=== PATIENT | female | born 2000 | race Caucasian/White ===

== ENCOUNTER 2021-03-20 06:48 | Emergency (ER) | payer OTHER ==
[~2021-03-20 06:48] MED LIST: BENTYL10 MG PO; GUAIFENESIN-PS1 EACH PO; ZOFRAN4 MG PO
[2021-03-20 07:53] LABS: BASOPHIL 0.7 % (0-2); EOSINOPHIL 1.3 % (0-5); HCT 42.7 % (37.0-47.0); HGB 13.3 g/dl (12.5-16.0); LYMPHOCYTE 30.4 % (15-48); MCH 27.8 pg (25.0-31.0); MCHC 31.1 g/dL (32.0-36.0); MCV 89.3 fL (78.0-100.0); MONOCYTE 8.2 % (0-12); MPV 12.3 fL (6.0-9.5); NEUTROPHIL 59.3 % (41-80); NRBC 0; PLT 309 K/uL (150-400); RBC 4.78 M/uL (4.20-5.40); RDW 13.2 % (11.5-14.0); WBC 10.4 K/uL (4.0-10.5)
[2021-03-20 08:03] LABS: BILIRUBIN NEGATIVE (NEGATIVE); BLOOD 2+ Ery/uL (NEGATIVE); CLARITY CLEAR (CLEAR); COLOR YELLOW (YELLOW); GLUCOSE (U) NORMAL (NORMAL); LEUKOCYTES TRACE Leu/uL (NEGATIVE); NITRITE NEGATIVE (NEGATIVE); PROTEIN NEGATIVE (NEGATIVE); SPECIFIC GRAVITY 1.025 (1.001-1.030)
[2021-03-20 08:05] LABS: AMPHETAMINES NEGATIVE (NEGATIVE); BARBITURATES NEGATIVE (NEGATIVE); ECSTASY (MDMA) NEGATIVE (NEGATIVE); MARIJUANA (THC) NEGATIVE (NEGATIVE); METHADONE NEGATIVE (NEGATIVE); OPIATES NEGATIVE (NEGATIVE); OXYCODONE NEGATIVE (NEGATIVE)
[2021-03-20 08:11] LABS: BACTERIA 1+; SQUAMOUS EPITHELIAL CELLS 20-50; URINARY RBC RARE; URINARY WBC 20-50
[2021-03-20 08:20] LABS: ALBUMIN 3.9 g/dL (3.4-5.0); ALKALINE PHOSHATASE 72 U/L (46-116); ALT 41 U/L (14-59); AST 23 U/L (15-37); BILIRUBIN - TOTAL 0.2 mg/dL (0.2-1.0); BUN 13 mg/dL (7-18); BUN/CREAT RATIO (CALC) 14.3 RATIO; C-REACTIVE PROTEIN <0.20 mg/dL (<=0.90); CHLORIDE 107 mmol/L (98-107); CO2 (BICARBONATE) 25 mmol/L (21-32); CREATININE 0.91 mg/dL (0.51-0.95); GLOBULIN (CALCULATION) 4.1 g/dL; GLUCOSE 103 mg/dL (74-106); LIPASE 85 U/L (73-393); POTASSIUM 4.1 mmol/L (3.5-5.1)
[2021-03-20] MEDS ORDERED: ZOFRAN4 M1 PO (09:25)
[2021-03-20] MEDS ORDERED: BACTRIM DS TAB1 EACH PO (09:25)
== END 2021-03-20 09:52 | disposition home or self-care (01) ==
LOC: FER 06:48
PROVIDERS: Internal Medicine
DX: N12 Tubulo-interstitial nephritis, not specified as acute or chronic (principal); R10.11 Right upper quadrant pain; J45.909 Unspecified asthma, uncomplicated; Z88.8 Allergy status to other drugs, medicaments and biological substances
CPT/HCPCS: 36415; 80053; 80305; 81001; 83690; 85025; 86140

== ENCOUNTER 2021-04-28 16:51 | Emergency (ER) | payer OTHER ==
[~2021-04-28 16:51] MED LIST changes: +BACTRIM DS TAB1 EACH PO; +ZOFRAN4 M1 PO
[2021-04-28 20:08] LABS: BILIRUBIN NEGATIVE (NEGATIVE); BLOOD 2+ Ery/uL (NEGATIVE); COLOR YELLOW (YELLOW); GLUCOSE (U) NORMAL (NORMAL); LEUKOCYTES 3+ Leu/uL (NEGATIVE); NITRITE POSITIVE (NEGATIVE); PROTEIN 1+ mg/dL (NEGATIVE); SPECIFIC GRAVITY 1.015 (1.001-1.030); UROBILINOGEN 0.2 mg/dL (0.2-1.0)
[2021-04-28 20:09] LABS: CLARITY CLOUDY (CLEAR)
[2021-04-28 20:11] LABS: URINARY WBC TNTC
[2021-04-28 23:04] LABS: BASOPHIL 0.3 % (0-2); EOSINOPHIL 0.3 % (0-5); HCT 41.2 % (37.0-47.0); HGB 12.7 g/dl (12.5-16.0); LYMPHOCYTE 12.2 % (15-48); MCH 27.7 pg (25.0-31.0); MCHC 30.8 g/dL (32.0-36.0); MCV 89.8 fL (78.0-100.0); MONOCYTE 11.1 % (0-12); MPV 12.7 fL (6.0-9.5); NEUTROPHIL 75.7 % (41-80); NRBC 0; PLT 289 K/uL (150-400); RBC 4.59 M/uL (4.20-5.40); RDW 13.7 % (11.5-14.0); WBC 14.5 K/uL (4.0-10.5)
[2021-04-28 23:15] LABS: ALBUMIN 3.6 g/dL (3.4-5.0); BILIRUBIN - TOTAL 0.7 mg/dL (0.2-1.0); BUN/CREAT RATIO (CALC) 11.3 RATIO; CREATININE 1.06 mg/dL (0.51-0.95); GLOBULIN (CALCULATION) 4.4 g/dL; POTASSIUM 3.8 mmol/L (3.5-5.1)
[2021-04-29] MEDS ORDERED: ZOFRAN4 M1 PO (00:23)
[2021-04-29] MEDS ORDERED: NORCO 5-325 TA1 EACH PO (00:23)
[2021-04-29] MEDS ORDERED: MOTRIN600 MG PO (00:23)
[2021-04-29] MEDS ORDERED: BACTRIM DS TAB1 EACH PO (00:23)
[2021-04-30] MEDS ORDERED: BACTRIM DS TAB1 EACH PO (21:09)
== END 2021-04-29 01:00 | disposition home or self-care (01) ==
LOC: FER 16:51
PROVIDERS: Emergency Medicine
DX: N10 Acute pyelonephritis (principal); Z88.8 Allergy status to other drugs, medicaments and biological substances
CPT/HCPCS: 36415; 80053; 81001; 83605; 85025; 87076; 87088; 87186; J1885; J1956; J2405; J7030

== ENCOUNTER 2021-04-30 15:41 | Inpatient (IN) | payer SELFPAY ==
[~2021-04-30] VITALS: Ht 165.1 cm; Wt 112.2 kg
[~2021-04-30 15:41] MED LIST changes: +MOTRIN600 MG PO; +NORCO 5-325 TA1 EACH PO
[2021-04-30 16:58] LABS: BILIRUBIN 1+ mg/dL (NEGATIVE); BLOOD 1+ Ery/uL (NEGATIVE); CLARITY CLEAR (CLEAR); COLOR YELLOW (YELLOW); GLUCOSE (U) NORMAL (NORMAL); LEUKOCYTES 1+ Leu/uL (NEGATIVE); NITRITE NEGATIVE (NEGATIVE); PROTEIN 1+ mg/dL (NEGATIVE); SPECIFIC GRAVITY 1.025 (1.001-1.030)
[2021-04-30 17:02] LABS: BASOPHIL 0.2 % (0-2); EOSINOPHIL 0.1 % (0-5); HCT 36.3 % (37.0-47.0); HGB 11.4 g/dl (12.5-16.0); LYMPHOCYTE 7.7 % (15-48); MCH 27.6 pg (25.0-31.0); MCHC 31.4 g/dL (32.0-36.0); MCV 87.9 fL (78.0-100.0); MONOCYTE 13.2 % (0-12); MPV 11.7 fL (6.0-9.5); NEUTROPHIL 78.3 % (41-80); NRBC 0; PLT 259 K/uL (150-400); RBC 4.13 M/uL (4.20-5.40); RDW 13.4 % (11.5-14.0); WBC 16.3 K/uL (4.0-10.5)
[2021-04-30 17:10] LABS: BACTERIA 2+
[2021-04-30 17:18] LABS: ALBUMIN 3.1 g/dL (3.4-5.0); BILIRUBIN - TOTAL 0.4 mg/dL (0.2-1.0); BUN/CREAT RATIO (CALC) 6.8 RATIO; CREATININE 1.18 mg/dL (0.51-0.95); GLOBULIN (CALCULATION) 3.8 g/dL; POTASSIUM 3.6 mmol/L (3.5-5.1); TOTAL PROTEIN 6.9 g/dL (6.4-8.2)
--- NOTE | 2021-04-30 21:06 | NUR ---
2010 PT RECEIVED ADMIT FROM ED IN STABLE CONDITION. PT ORIENTED TO ROOM AND CALL LIGHT.
[2021-04-30] MEDS ORDERED: BACTRIM DS TAB1 EACH PO (21:09)
[2021-04-30 21:34] LABS: CORONAVIRUS 2019 SARS-COV-2 NEGATIVE (NEGATIVE); INFLUENZA A NAA NEGATIVE (NEGATIVE)
[2021-05-01 06:41] LABS: BASOPHIL 0.3 % (0-2); EOSINOPHIL 0.5 % (0-5); HCT 31.8 % (37.0-47.0); HGB 9.6 g/dl (12.5-16.0); LYMPHOCYTE 17.2 % (15-48); MCHC 30.2 g/dL (32.0-36.0); MCV 89.6 fL (78.0-100.0); MONOCYTE 13.5 % (0-12); MPV 12.1 fL (6.0-9.5); NEUTROPHIL 68.2 % (41-80); NRBC 0; PLT 217 K/uL (150-400); RBC 3.55 M/uL (4.20-5.40); RDW 13.6 % (11.5-14.0); WBC 11.1 K/uL (4.0-10.5)
[2021-05-01 09:14] LABS: ALBUMIN 2.4 g/dL (3.4-5.0); BILIRUBIN - TOTAL 0.4 mg/dL (0.2-1.0); BUN/CREAT RATIO (CALC) 9.3 RATIO; CREATININE 1.08 mg/dL (0.51-0.95); GLOBULIN (CALCULATION) 3.4 g/dL; POTASSIUM 4.1 mmol/L (3.5-5.1); TOTAL PROTEIN 5.8 g/dL (6.4-8.2)
[2021-05-01 10:31] LABS: FOLIC ACID (SERUM) 8.8 ng/mL (8.6-58.9)
[2021-05-02 05:54] LABS: BASOPHIL 0.3 % (0-2); EOSINOPHIL 0.6 % (0-5); HCT 33.7 % (37.0-47.0); HGB 10.4 g/dl (12.5-16.0); LYMPHOCYTE 17.2 % (15-48); MCH 27.2 pg (25.0-31.0); MCHC 30.9 g/dL (32.0-36.0); MONOCYTE 10.4 % (0-12); MPV 11.6 fL (6.0-9.5); NEUTROPHIL 71.1 % (41-80); NRBC 0; PLT 277 K/uL (150-400); RBC 3.83 M/uL (4.20-5.40); RDW 13.7 % (11.5-14.0); WBC 11.5 K/uL (4.0-10.5)
[2021-05-02 06:16] LABS: BUN/CREAT RATIO (CALC) 9.3 RATIO; CREATININE 0.86 mg/dL (0.51-0.95); POTASSIUM 3.7 mmol/L (3.5-5.1)
--- NOTE | 2021-05-02 15:53 | NUR ---
05/02/21 Ms. lao lives at home with her parents. 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 Ms. Lao was educated to the [facility].
[2021-05-02] MEDS ORDERED: LEVAQUIN750 MG PO (18:18)
== END 2021-05-02 18:40 | disposition home or self-care (01) | DRG 872 ==
LOC: FER 15:41 → FMS 20:05 → FER 20:18 → FMS 05-02 18:40
PROVIDERS: Nurse Practitioner; Nurse Practitioner Family; ADMIT Internal Medicine
DX: A41.50 Gram-negative sepsis, unspecified (principal); N10 Acute pyelonephritis; N17.9 Acute kidney failure, unspecified; Z20.822 Contact with and (suspected) exposure to COVID-19; E86.0 Dehydration; J45.909 Unspecified asthma, uncomplicated; Z88.1 Allergy status to other antibiotic agents; Z90.89 Acquired absence of other organs; Z88.8 Allergy status to other drugs, medicaments and biological substances; Z98.890 Other specified postprocedural states
CPT/HCPCS: 36415; 80048; 80053; 81001; 82607; 82746; 83540; 83550; 83605; 83735; 85025; 87040; 87076; 87088; 87186; 93005; J1885; J1956; J2185; J2405; J2550; J7030; U0002

== ENCOUNTER 2021-11-26 17:49 | Emergency (ER) | payer SELFPAY ==
[~2021-11-26 17:49] MED LIST changes: +LEVAQUIN750 MG PO
[2021-11-26 19:24] LABS: BILIRUBIN NEGATIVE (NEGATIVE); BLOOD TRACE-INTACT Ery/uL (NEGATIVE); CLARITY CLEAR (CLEAR); COLOR YELLOW (YELLOW); GLUCOSE (U) NORMAL (NORMAL); LEUKOCYTES 3+ Leu/uL (NEGATIVE); NITRITE NEGATIVE (NEGATIVE); PROTEIN NEGATIVE (NEGATIVE); SPECIFIC GRAVITY 1.015 (1.001-1.030); UROBILINOGEN 0.2 mg/dL (0.2-1.0)
[2021-11-26 19:30] LABS: BACTERIA 1+; TRANSITIONAL EPITHELIAL CELLS RARE
[2021-11-26 19:32] LABS: URINARY WBC 20-50
[2021-11-26 20:00] LABS: CORONAVIRUS 2019 SARS-COV-2 NEGATIVE (NEGATIVE); INFLUENZA A NAA NEGATIVE (NEGATIVE)
== END 2021-11-26 22:44 | disposition home or self-care (01) ==
LOC: FER 17:49
PROVIDERS: Nurse Practitioner Family
DX: R05.9 Cough, unspecified (principal); A59.9 Trichomoniasis, unspecified; J45.909 Unspecified asthma, uncomplicated; Z20.822 Contact with and (suspected) exposure to COVID-19; Z88.1 Allergy status to other antibiotic agents; Z88.8 Allergy status to other drugs, medicaments and biological substances; Z79.899 Other long term (current) drug therapy
CPT/HCPCS: 36415; 71045; 81001; 85379; J0696; Q0162; U0002

== ENCOUNTER 2022-01-14 11:45 | Emergency (ER) | payer SELFPAY ==
[2022-01-14 12:53] LABS: BASOPHIL 0.6 % (0-2); EOSINOPHIL 4.5 % (0-5); HCT 41.7 % (37.0-47.0); HGB 12.9 g/dl (12.5-16.0); LYMPHOCYTE 33.6 % (15-48); MCH 26.9 pg (25.0-31.0); MCHC 30.9 g/dL (32.0-36.0); MCV 87.1 fL (78.0-100.0); MONOCYTE 11.2 % (0-12); MPV 11.9 fL (6.0-9.5); NEUTROPHIL 49.9 % (41-80); NRBC 0; PLT 285 K/uL (150-400); RBC 4.79 M/uL (4.20-5.40); RDW 13.7 % (11.5-14.0)
[2022-01-14 13:05] LABS: ALBUMIN 3.7 g/dL (3.4-5.0); BILIRUBIN - TOTAL 0.3 mg/dL (0.2-1.0); BUN/CREAT RATIO (CALC) 14.3 RATIO; CREATININE 0.84 mg/dL (0.51-0.95); GLOBULIN (CALCULATION) 4.2 g/dL; TOTAL PROTEIN 7.9 g/dL (6.4-8.2)
[2022-01-14 13:35] LABS: CORONAVIRUS 2019 SARS-COV-2 NEGATIVE (NEGATIVE); INFLUENZA A NAA NEGATIVE (NEGATIVE)
[2022-01-14 13:39] LABS: BILIRUBIN NEGATIVE (NEGATIVE); BLOOD NEGATIVE Ery/uL (NEGATIVE); CLARITY HAZY (CLEAR); COLOR YELLOW (YELLOW); GLUCOSE (U) NORMAL (NORMAL); LEUKOCYTES NEGATIVE Leu/uL (NEGATIVE); NITRITE NEGATIVE (NEGATIVE); PROTEIN NEGATIVE (NEGATIVE); UROBILINOGEN 0.2 mg/dL (0.2-1.0)
[2022-01-14] MEDS ORDERED: ONDANSETRON ODT4 MG PO (14:14)
== END 2022-01-14 14:32 | disposition home or self-care (01) ==
LOC: FER 11:45
PROVIDERS: Nurse Practitioner Family
DX: R11.2 Nausea with vomiting, unspecified (principal); R19.7 Diarrhea, unspecified; J45.909 Unspecified asthma, uncomplicated; Z88.8 Allergy status to other drugs, medicaments and biological substances; Z88.1 Allergy status to other antibiotic agents; Z20.822 Contact with and (suspected) exposure to COVID-19
CPT/HCPCS: 36415; 80053; 81003; 83690; 85025; J2405; J7030; U0002

== ENCOUNTER 2022-02-12 16:31 | Emergency (ER) | payer SELFPAY ==
[~2022-02-12 16:31] MED LIST changes: +ONDANSETRON ODT4 MG PO
== END 2022-02-12 19:06 | disposition home or self-care (01) ==
LOC: FER 16:31
DX: T23.251A Burn of second degree of right palm, initial encounter (principal); Z88.8 Allergy status to other drugs, medicaments and biological substances; Z88.1 Allergy status to other antibiotic agents; X15.1XXA Contact with hot toaster, initial encounter; Y92.89 Other specified places as the place of occurrence of the external cause; Y99.0 Civilian activity done for income or pay; Z28.310 Unvaccinated for COVID-19
CPT/HCPCS: 99283